=== PATIENT | female | born 1975 | race Hispanic/Latino ===

== ENCOUNTER 2017-01-25 17:16 | Observation (INO) | payer MEDICAID ==
[2017-01-25 17:17] VITALS: BMI 23.4
[2017-01-25 17:22] VITALS: RESP 18
--- NOTE | 2017-01-25 17:46 | ED PDOC ---
HPI: Psych/Substance Abuse Time Seen by Provider: 01/25/17 17:24 Chief Complaint (Nursing): Alcohol Ingestion Chief Complaint (Provider): Alcohol intoxication ED Caveat: Intoxicated History Per: Patient, EMS History/Exam Limitations: no limitations Onset/Duration Of Symptoms: Hrs Current Symptoms Are (Timing): Still Present Suicide/Self Injury Attempted (Context): None Modifying Factor(s): Alcohol Severity: Moderate Associated Symptoms: denies: Suicidal Thoughts, Suicidal Plan Additional Complaint(s): The pt is a 41yo female, brought to the ED by EMS s/p discovering the pt publicly intoxicated. Pt admits to drinking a bottle of vodka with her friends today. She denies any trauma or injuries. Pt offers no medical complaints. Past Medical History Reviewed: Historical Data, Nursing Documentation, Vital Signs Vital Signs: Last Vital Signs Temp 97.2 F L 01/25/17 17:19 Pulse 102 H 01/25/17 17:19 Resp 18 01/25/17 17:19 BP 129/97 H 01/25/17 17:19 Pulse Ox 98 01/25/17 17:19 - Medical History PMH: Depression Denies: Hepatitis, HIV, HTN, Chronic Kidney Disease, Seizures, Sexually Transmitted Disease - Family History Family History: States: Unknown Family Hx - Social History Alcohol: > 2 Drinks/Day - Immunization History Hx Tetanus Toxoid Vaccination: No Hx Influenza Vaccination: No Hx Pneumococcal Vaccination: No - Home Medications Home Medications: Ambulatory Orders Medication Instructions Recorded Escitalopram [Lexapro] 20 mg PO DAILY #30 tab 07/14/16 Gabapentin [Neurontin] 300 mg PO TID #90 cap 07/14/16 QUEtiapine [Seroquel] 300 mg PO HS #30 tab 07/14/16 - Allergies Allergies/Adverse Reactions: Allergies Allergy/AdvReac Type Severity Reaction Status Date / Time No Known Allergies Allergy Verified 01/25/17 17:19 Review of Systems ROS Statement: Except As Marked, All Systems Reviewed And Found Negative Psych: Positive for: Other (alcohol intox) Physical Exam - Reviewed Nursing Documentation Reviewed: Yes Vital Signs Reviewed: Yes - Physical Exam Appears: Positive for: Well, No Acute Distress Head Exam: Positive for: ATRAUMATIC, NORMAL INSPECTION, NORMOCEPHALIC Skin: Positive for: Normal Color Eye Exam: Positive for: Normal appearance, EOMI, PERRL Neck: Positive for: Normal Cardiovascular/Chest: Positive for: Regular Rate, Rhythm Respiratory: Positive for: Normal Breath Sounds. Negative for: Respiratory Distress Neurologic/Psych: Positive for: Alert, Oriented, Mood/Affect (slurred speech), Gait (unsteady gait) - ECG O2 Sat by Pulse Oximetry: 98 (RA) Pulse Ox Interpretation: Normal Medical Decision Making Medical Decision Making: Time: 1735 Impression: Alcohol intoxication Plan: * ED observation for clinical sobriety * Alcohol serum * Reassess Scribe Attestation: Documented by Kamila Chapman acting as a scribe for Dieudonne Darling MD. Provider Attestation: All medical record entries made by the Scribe were at my direction and personally dictated by me. I have reviewed the chart and agree that the record accurately reflects my personal performance of the history, physical exam, medical decision making, and the department course for this patient. I have also personally directed, reviewed, and agree with the discharge instructions and disposition. ED OBSERVATION Date of observation admission: 01/25/17 Time of observation admission: 17:48 - Observation admission statement Patient is being placed in observation because:: Pt acutely intoxicated - Goals of Observation Goals of observation are:: Awaiting clinical sobriety - Progress Note Progress Note: 01/25/17 17:48 Pt in room with slurred speech, unsteady gait. No other medical complaints. 01/25/17 19:09 Pt is still intoxicated, sleeping in room. vitals stable. 01/25/17 20:00 Pt to be signed over to Dr. Smith pending clinical sobriety. Disposition - Clinical Impression Clinical Impression: Alcohol abuse with intoxication - Patient ED Disposition Is Patient to be Admitted: Transfer of Care - Disposition Disposition: Transfer of Care Disposition Time: 19:00 Condition: STABLE Patient Signed Over To: Humphrey Smith Handoff Comments: pending clinical sobriety
--- NOTE | 2017-01-25 20:09 | ED PDOC ---
- ECG O2 Sat by Pulse Oximetry: 98 (RA) Pulse Ox Interpretation: Normal Medical Decision Making Medical Decision Making: Receiving Sign Out: Pt signed over to me by Dr. Darling pending clinical sobriety. 0555: Patient is awake and alert with steady gait ready to be discharged home. Scribe Attestation: Documented by Kamila Chapman acting as a scribe for Humphrey gould MD. Provider Attestation: All medical record entries made by the Scribe were at my direction and personally dictated by me. I have reviewed the chart and agree that the record accurately reflects my personal performance of the history, physical exam, medical decision making, and the department course for this patient. I have also personally directed, reviewed, and agree with the discharge instructions and disposition. Disposition - Clinical Impression Clinical Impression: Alcohol abuse with intoxication - POA Present On Arrival: None - Disposition Disposition: Routine/Home Disposition Time: 06:02 Condition: STABLE
[2017-01-26 06:04] VITALS: BP 151/92; PULSE 91; O2SAT 97
[2017-01-26 06:05] VITALS: TEMP 98.2
== END 2017-01-26 05:49 | disposition home or self-care (01) ==
LOC: H.ER 17:16 → H.EROBSV 17:43
PROVIDERS: ADMIT Emergency Medicine; ATTEND Emergency Medicine
DX: F10.129 Alcohol abuse with intoxication, unspecified (principal); F32.9 Major depressive disorder, single episode, unspecified

== ENCOUNTER 2017-02-03 23:54 | Observation (INO) | payer MEDICAID ==
[2017-02-03 23:54] VITALS: BMI 23.4
[2017-02-03 23:59] VITALS: TEMP 98; O2SAT 100
--- NOTE | 2017-02-04 00:51 | ED PDOC ---
HPI: Psych/Substance Abuse Time Seen by Provider: 02/04/17 00:05 Chief Complaint (Nursing): Psychiatric Evaluation Chief Complaint (Provider): edp History Per: EMS Additional History Per: EMS Additional Complaint(s): 41 y/o female brought in by EMS for eval of bizarre behavior. HPI limited due to patients current state; admitted to triage nurse to drinking tonight. Past Medical History Reviewed: Historical Data, Nursing Documentation, Vital Signs Vital Signs: Last Vital Signs Temp 98.0 F 02/03/17 23:55 Pulse 106 H 02/03/17 23:55 Resp 16 02/03/17 23:55 BP 141/85 02/03/17 23:55 Pulse Ox 100 02/03/17 23:55 - Medical History PMH: Depression Denies: Hepatitis, HIV, HTN, Chronic Kidney Disease, Seizures, Sexually Transmitted Disease - Surgical History Surgical History: No Surg Hx - Family History Family History: States: Unknown Family Hx - Immunization History Hx Tetanus Toxoid Vaccination: No Hx Influenza Vaccination: No Hx Pneumococcal Vaccination: No - Home Medications Home Medications: Ambulatory Orders Medication Instructions Recorded Escitalopram [Lexapro] 20 mg PO DAILY #30 tab 07/14/16 Gabapentin [Neurontin] 300 mg PO TID #90 cap 07/14/16 QUEtiapine [Seroquel] 300 mg PO HS #30 tab 07/14/16 Amoxicillin/Clavulanate [Augmentin 1 tab PO Q12 #20 tab 02/04/17 875 MG-125 MG] Erythromycin 0.5% [Erythromycin] 1 applic OS Q6 #1 tube 02/04/17 - Allergies Allergies/Adverse Reactions: Allergies Allergy/AdvReac Type Severity Reaction Status Date / Time No Known Allergies Allergy Verified 02/03/17 23:55 Review of Systems Review Of Systems: ROS cannot be obtained secondary to pt's inabilty to answer questions. Physical Exam - Reviewed Nursing Documentation Reviewed: Yes Vital Signs Reviewed: Yes - Physical Exam Appears: Positive for: Well, Non-toxic, Uncomfortable (sleeping) Skin: Positive for: Rash (left facial swelling) Eye Exam: Positive for: Periorbital swelling (left), Periorbital tenderness ( left), Conjunctival injection (left) ENT: Positive for: Normal ENT Inspection Cardiovascular/Chest: Positive for: Regular Rate, Rhythm Respiratory: Positive for: Normal Breath Sounds Gastrointestinal/Abdominal: Positive for: Normal Exam Back: Positive for: Normal Inspection Extremity: Positive for: Normal ROM Neurologic/Psych: Positive for: Alert (responds to sternal rub) - Laboratory Results Result Diagrams: 02/04/17 00:55 02/04/17 00:55 - ECG O2 Sat by Pulse Oximetry: 100 ED OBSERVATION Date of observation admission: 02/04/17 Time of observation admission: 01:00 - Observation admission statement Patient is being placed in observation because:: acute alcohol intoxication, facial trauma - Goals of Observation Goals of observation are:: obtain CT head, CT facial, observe for clinical sobriety - Progress Note Progress Note: 02/04/17 1:00 Patient sleeping; responds to sternal rub 3:00 Patient sleeping 5:00 EXAM: CT Maxillofacial Without Intravenous Contrast CLINICAL HISTORY: 41 years old, female; Injury or trauma; Fall; Initial encounter; Blunt trauma ( contusions or hematomas); Cheek bone; Left; Additional info: ETOH, fall TECHNIQUE: Axial computed tomography images of the face without intravenous contrast. This CT exam was performed using one or more of the following dose reduction techniques: automated exposure control, adjustment of the mA and/or kV according to patient size, and/or use of iterative reconstruction technique. Coronal and sagittal reformatted images were created and reviewed. EXAM DATE/TIME: 02/04/2017 12:48 AM COMPARISON: CT HEAD OR BRAIN W/O CONT 02/24/2013 11:50:40 PM FINDINGS: Bones/joints: Acute mild dehiscence of the left zygomaticotemporal suture. Acute displaced fractures of both frontal processes of the maxilla and both temporal bones. Minimally displaced fracture of the anterior, superior margin of the bony nasal septum. Minimally displaced fracture of the medial margin of the left orbital floor with focal herniation of intraorbital fat. Soft tissues: Left facial soft tissue swelling. Orbits: Unremarkable. Sinuses: Mild mucosal thickening of the maxillary sinuses. No air-fluid levels. IMPRESSION: 1. Acute mild dehiscence of the left zygomaticotemporal suture. 2. Displaced fractures of both frontal processes of the maxilla and both temporal bones, new since the available prior study. 3. Minimally displaced fracture of the anterior, superior margin of the bony nasal septum. 4. Minimally displaced fracture of the medial margin of the left orbital floor with focal herniation of intraorbital fat. EXAM: CT Head Without Intravenous Contrast CLINICAL HISTORY: 41 years old, female; Injury or trauma; Fall; Additional info: ETOH, fall TECHNIQUE: Axial computed tomography images of the head/brain without intravenous contrast. This CT exam was performed using one or more of the following dose reduction techniques: automated exposure control, adjustment of the mA and/or kV according to patient size, and/or use of iterative reconstruction technique. Coronal and sagittal reformatted images provided and reviewed. EXAM DATE/TIME: 02/04/2017 12:48 AM COMPARISON: CT HEAD OR BRAIN W/O CONT 02/24/2013 11:50:40 PM FINDINGS: Brain: No intracranial hemorrhage. No evidence of evolved territorial infarct or cerebral edema. No mass effect or midline shift. Ventricles: Unremarkable. No ventriculomegaly. Bones/joints: Facial bones are described separately. No calvarial fracture. Soft tissues: Frontal soft tissue swelling. Sinuses: Visualized paranasal sinuses are clear. Mastoid air cells: Mastoid air cells are well-aerated. IMPRESSION: No acute intracranial findings. 5:45 Case discussed with ED attending Dr. Smith, who agrees patient will need OMFS follow up. Augmentin dose given in ED. Patient will be endorsed pending clinical sobriety for better understanding of follow up instructions and to obtain visual acuity test. Disposition - Clinical Impression Clinical Impression: Facial bones, closed fracture, Alcohol abuse - Patient ED Disposition Is Patient to be Admitted: No - Disposition Disposition: Transfer of Care Disposition Time: 06:10 Condition: FAIR Patient Signed Over To: Humphrey Smith Handoff Comments: pending sobriety, visual acuity, and re-eval
[2017-02-04 01:30] LABS: BASO % 0.4 % (0.0-2.0); EOS # 0.1 K/uL (0.0-0.7); EOS % 1.8 % (0.0-4.0); HEMATOCRIT 37.6 % (34.0-47.0); LYMPH # 1.5 K/uL (1.0-4.3); LYMPH % 24.8 % (20.0-40.0); MEAN CELL VOLUME 91.6 fl (81.0-99.0); MEAN CORPUSCULAR HEMOGLOBIN 29.9 pg (27.0-31.0); MEAN CORPUSCULAR HGB CONC 32.7 g/dL (33.0-37.0); MEAN PLATELET VOLUME 7.3 fl (7.2-11.7); MONO # 0.3 K/uL (0.0-0.8); MONO % 5.6 % (0.0-10.0); NEUT # 4.1 K/uL (1.8-7.0); NEUT % 67.4 % (50.0-75.0); NRBC % 0.1 % (0.0-0.0); RED CELL DISTRIBUTION WIDTH 16.7 % (11.5-14.5); WHITE BLOOD COUNT 6.1 K/uL (4.8-10.8)
[2017-02-04 01:48] LABS: ALB/GLOB RATIO 1.1 (1.0-2.1); ALKALINE PHOSPHATASE 120 U/L (38-126); ALT/SGPT 68 U/L (9-52); AST/SGOT 78 U/L (14-36); BILIRUBIN,TOTAL 0.3 mg/dl (0.2-1.3); BLOOD UREA NITROGEN 9 mg/dl (7-17); CALCIUM 8.4 mg/dL (8.4-10.2); CARBON DIOXIDE 24 mmol/L (22-30); CHLORIDE 104 mmol/L (98-107); GFR AFRICAN-AMERICAN > 60; GLUCOSE,RANDOM 90 mg/dL (65-105); POTASSIUM 3.3 MMOL/L (3.6-5.0); SODIUM 145 mmol/l (132-148); TOTAL PROTEIN 8.3 G/DL (6.3-8.2)
[2017-02-04 02:00] LABS: ALCOHOL SERUM 386 mg/dl (0-10)
[2017-02-04] MEDS ORDERED: Amoxicillin-Clav 875-125 mg Tab PO STA (05:23)
[2017-02-04] MEDS ORDERED: Amoxicillin-Clav 875-125 mg Tab PO ONE (06:05)
[2017-02-04 06:20] VITALS: BP 132/81; PULSE 91; RESP 17
--- NOTE | 2017-02-04 10:39 | CT ---
PROCEDURE: CT HEAD WITHOUT CONTRAST. HISTORY: etoh, fall COMPARISON: Noncontrast head CT performed 02/24/13 TECHNIQUE: Axial computed tomography images were obtained through the head/brain without intravenous contrast. Radiation dose: Total exam DLP = 843.46 mGy-cm. This CT exam was performed using one or more of the following dose reduction techniques: Automated exposure control, adjustment of the mA and/or kV according to patient size, and/or use of iterative reconstruction technique. FINDINGS: HEMORRHAGE: No intracranial hemorrhage. BRAIN: No mass effect or edema. No atrophy or chronic microvascular ischemic changes.Please note that MRI with diffusion imaging is more sensitive in the detection of acute ischemic event. VENTRICLES: No hydrocephalus. CALVARIUM: Unremarkable. PARANASAL SINUSES: Unremarkable as visualized. No significant inflammatory changes. MASTOID AIR CELLS: Unremarkable as visualized. No inflammatory changes. OTHER FINDINGS: Left frontal and preseptal soft tissue swelling. IMPRESSION: Left frontal and preseptal soft tissue swelling. No acute intracranial pathology identified. Preliminary impression was provided by [facility].
--- NOTE | 2017-02-04 13:39 | CT ---
PROCEDURE: CT MAXILLOFACIAL BONES WITHOUT CONTRAST HISTORY: etoh, fall COMPARISON: None TECHNIQUE: Contiguous axial CT images of the maxillofacial bones were obtained. Coronal and sagittal reformats were generated. Radiation dose: Total exam DLP = 651.03 mGy-cm. This CT exam was performed using one or more of the following dose reduction techniques: Automated exposure control, adjustment of the mA and/or kV according to patient size, and/or use of iterative reconstruction technique. FINDINGS: NASAL BONES: Nasal bone fractures are seen. Minimally displaced fracture of the anterior superior margin of the bony nasal septum. ORBITS: Nondisplaced fracture at the medial margin of the left orbital floor with focal small herniation of the intraorbital fat into the left maxillary sinus. PARANASAL SINUSES/ MASTOIDS: Mild mucosal thickening seen in the ethmoid and maxillary sinus. MAXILLA: Displaced fractures of the both frontal process of the maxilla and both temporal bones. MANDIBLE/ TEMPOROMANDIBULAR JOINTS: Unremarkable. SKULL BASE: Unremarkable. TEMPORAL BONES: There is acute mild dehiscences of the left zygomaticotemporal suture OTHER FINDINGS: None. IMPRESSION: Nasal bone and nasal septal fractures. Mildly displaced fracture at both frontal process of the maxilla. Acute mildly since of the left zygomatic temporal suture. Nondisplaced fracture at the medial margin of the left orbital floor with focal herniation of the intraorbital fat. Preliminary report was submitted by [facility]
== END 2017-02-04 06:58 | disposition home or self-care (01) ==
LOC: H.ER 23:54 → H.EROBSV 02-04 01:00
PROVIDERS: ADMIT Emergency Medicine; ATTEND Emergency Medicine
DX: F10.10 Alcohol abuse, uncomplicated (principal); F32.9 Major depressive disorder, single episode, unspecified; S02.32XA Fracture of orbital floor, left side, initial encounter for closed fracture; T81.33XA Disruption of traumatic injury wound repair, initial encounter; X58.XXXA Exposure to other specified factors, initial encounter; Y93.9 Activity, unspecified; Y92.9 Unspecified place or not applicable; Y99.9 Unspecified external cause status

== ENCOUNTER 2017-02-05 08:48 | Inpatient (IN) | payer MEDICAID ==
[2017-02-05] MEDS ORDERED: Sodium Chloride 0.9% 1,000 ML IV STA (09:00)
--- NOTE | 2017-02-05 09:17 | ED PDOC ---
HPI: Psych/Substance Abuse Time Seen by Provider: 02/05/17 08:52 Chief Complaint (Nursing): Alcohol Ingestion Chief Complaint (Provider): Alcohol Ingestion ED Caveat: Intoxicated, Uncooperative History/Exam Limitations: intoxication Current Symptoms Are (Timing): Still Present Additional Complaint(s): Yarelis Nava is a 41 year old female with a history of ETOH abuse, who presents to the Emergency Department via EMS when she was found publicly intoxicated on the street. Seen prior on 02/04/17 for alcohol intoxication and had CT Orbits performed which shown multiple fractures and herniation of the extra ocular fat. Patient is unable to provide medical history and deplorable to state any changes in visual acuity. Denies any new injury or trauma. PMD: None provided Past Medical History Reviewed: Historical Data, Nursing Documentation, Vital Signs Vital Signs: Last Vital Signs Temp 98 F 02/05/17 08:59 Pulse 89 02/05/17 08:59 Resp 16 02/05/17 08:59 BP 130/97 H 02/05/17 08:59 Pulse Ox 99 02/05/17 08:59 - Medical History PMH: Depression Denies: Hepatitis, HIV, HTN, Chronic Kidney Disease, Seizures, Sexually Transmitted Disease Other PMH: ETOH Abuse - Family History Family History: States: Unknown Family Hx - Immunization History Hx Tetanus Toxoid Vaccination: No Hx Influenza Vaccination: No Hx Pneumococcal Vaccination: No - Home Medications Home Medications: Ambulatory Orders Medication Instructions Recorded Escitalopram [Lexapro] 20 mg PO DAILY #30 tab 07/14/16 Gabapentin [Neurontin] 300 mg PO TID #90 cap 07/14/16 QUEtiapine [Seroquel] 300 mg PO HS #30 tab 07/14/16 Amoxicillin/Clavulanate [Augmentin 1 tab PO Q12 #20 tab 02/04/17 875 MG-125 MG] Erythromycin 0.5% [Erythromycin] 1 applic OS Q6 #1 tube 02/04/17 - Allergies Allergies/Adverse Reactions: Allergies Allergy/AdvReac Type Severity Reaction Status Date / Time No Known Allergies Allergy Verified 02/03/17 23:55 Review of Systems Review Of Systems: ROS cannot be obtained secondary to pt's inabilty to answer questions. Physical Exam - Reviewed Nursing Documentation Reviewed: Yes Vital Signs Reviewed: Yes - Physical Exam Appears: Positive for: Well, Non-toxic, No Acute Distress (ETOH intoxication ) Eye Exam: Positive for: EOMI (appears to be intact but the patient is noncompliant with exam ), Periorbital swelling (left eye). Negative for: Normal appearance Neck: Positive for: Normal, Supple Cardiovascular/Chest: Positive for: Regular Rate, Rhythm. Negative for: Murmur Respiratory: Positive for: Normal Breath Sounds. Negative for: Respiratory Distress Neurologic/Psych: Positive for: Alert (sleepy but arousable ), Other (Slurred speech). Negative for: Motor/Sensory Deficits (no focal deficits) - ECG O2 Sat by Pulse Oximetry: 99 (RA) Pulse Ox Interpretation: Normal Medical Decision Making Medical Decision Making: Time: 8:59 Initial Impression: ETOH Intoxication Initial Plan: * CT Maxillofacial w/o contrast * ETOH serum * Normal Saline 1,000 ml IV per 100 mls/hr * ED obs * reevaluation 02/04/17 CT Head FINDINGS: HEMORRHAGE: No intracranial hemorrhage. BRAIN: No mass effect or edema. No atrophy or chronic microvascular ischemic changes.Please note that MRI with diffusion imaging is more sensitive in the detection of acute ischemic event. VENTRICLES: No hydrocephalus. CALVARIUM: Unremarkable. PARANASAL SINUSES: Unremarkable as visualized. No significant inflammatory changes. MASTOID AIR CELLS: Unremarkable as visualized. No inflammatory changes. OTHER FINDINGS: Left frontal and preseptal soft tissue swelling. IMPRESSION: Left frontal and preseptal soft tissue swelling. No acute intracranial pathology identified. Preliminary impression was provided by [facility]. Scribe Attestation: Documented by~Beverly Patel, acting as a scribe for Rasta White MD. Provider Scribe Attestation: All medical record entries made by the Scribe were at my direction and personally dictated by me. I have reviewed the chart and agree that the record accurately reflects my personal performance of the history, physical exam, medical decision making, and the department course for this patient. I have also personally directed, reviewed, and agree with the discharge instructions and disposition. ED OBSERVATION Date of observation admission: 02/05/17 Time of observation admission: 09:10 - Observation admission statement Patient is being placed in observation because:: alcohol intoxication - Goals of Observation Goals of observation are:: clinical sobriety - Progress Note Progress Note: 02/05/17 14:19 Upon reevaluation patient is becoming combative and more responsive but is not fully awake and alert. Disposition - Clinical Impression Clinical Impression: Alcohol abuse, Orbital fracture - Patient ED Disposition Is Patient to be Admitted: Transfer of Care - Disposition Disposition: Transfer of Care Disposition Time: 15:00 Condition: FAIR Patient Signed Over To: Trey Goodwin Handoff Comments: 15:00. Patient is being signed out to Lida Goodwin MD pending clinical sobriety and crisis evaluation
--- NOTE | 2017-02-05 15:25 | ED PDOC ---
- Laboratory Results Result Diagrams: 02/05/17 23:43 02/05/17 23:43 - ECG O2 Sat by Pulse Oximetry: 99 (RA) Pulse Ox Interpretation: Normal - Progress Re-evaluation Time: 21:35 (pending clinical sobriety) Condition: Unchanged Medical Decision Making Medical Decision Makin:00 Patient was signed off to me by Rasta White MD. Pending clinical sobriety and re-evaluation for eye exam. 21:35 Pending clinical sobriety. 22:15 pt sober. awake and alert. requesting to see formula room worker for depression. pt eye exam repeated. LAURIE ADAMS noted. formula room worker evaluated pt, will admit to Dr Rios for depression once labs are back and pt medically cleared. EKG: NSR at 80 bpm 2355: Patient is medically cleared for psychiatric admission. pt expressed suicidality and was seen by formula room worker and pt agrees to sign in voluntarily Scribe Attestation: Documented by~Beverly Patel, acting as a scribe for Trey Goodwin MD. Provider Scribe Attestation: All medical record entries made by the Scribe were at my direction and personally dictated by me. I have reviewed the chart and agree that the record accurately reflects my personal performance of the history, physical exam, medical decision making, and the department course for this patient. I have also personally directed, reviewed, and agree with the discharge instructions and disposition. Disposition Counseled Patient/Family Regarding: Studies Performed, Diagnosis - Clinical Impression Clinical Impression: Alcohol abuse, Orbital fracture, Depression - POA Present On Arrival: None - Disposition Disposition: Admitted as In-Patient Disposition Time: 23:35 Condition: FAIR
[2017-02-05 21:50] VITALS: O2SAT 99
[2017-02-05 23:47] LABS: BASO % 0.7 % (0.0-2.0); EOS # 0.2 K/uL (0.0-0.7); EOS % 2.9 % (0.0-4.0); HEMATOCRIT 37.8 % (34.0-47.0); LYMPH # 1.3 K/uL (1.0-4.3); MEAN CELL VOLUME 91.5 fl (81.0-99.0); MEAN CORPUSCULAR HEMOGLOBIN 30.1 pg (27.0-31.0); MEAN CORPUSCULAR HGB CONC 32.9 g/dL (33.0-37.0); MEAN PLATELET VOLUME 7.3 fl (7.2-11.7); MONO # 0.5 K/uL (0.0-0.8); MONO % 8.9 % (0.0-10.0); NEUT # 3.3 K/uL (1.8-7.0); NEUT % 62.5 % (50.0-75.0); RED CELL DISTRIBUTION WIDTH 16.5 % (11.5-14.5); WHITE BLOOD COUNT 5.2 K/uL (4.8-10.8)
[2017-02-05 23:55] LABS: ALB/GLOB RATIO 1.1 (1.0-2.1); ALCOHOL SERUM < 10 mg/dl (0-10); ALKALINE PHOSPHATASE 109 U/L (38-126); ALT/SGPT 87 U/L (9-52); AST/SGOT 95 U/L (14-36); BILIRUBIN,TOTAL 0.6 mg/dl (0.2-1.3); BLOOD UREA NITROGEN 13 mg/dl (7-17); CALCIUM 9.3 mg/dL (8.4-10.2); CARBON DIOXIDE 30 mmol/L (22-30); CHLORIDE 95 mmol/L (98-107); GFR AFRICAN-AMERICAN > 60; GLUCOSE,RANDOM 96 mg/dL (65-105); POTASSIUM 4.3 MMOL/L (3.6-5.0); SODIUM 132 mmol/l (132-148); TOTAL PROTEIN 8.4 G/DL (6.3-8.2)
[2017-02-06] MEDS ORDERED: Magnesium Hydroxide Susp 30 ml UD PO PRN (01:49)
[2017-02-06] MEDS ORDERED: DiphenhydrAMINE 50 mg/ml Inj IM PRN (01:49)
[2017-02-06 02:06] LABS: RBC URINE 2 /hpf (0-3); URINE BACTERIA RARE (<OCC); URINE BILIRUBIN NEGATIVE (NEGATIVE); URINE BLOOD NEGATIVE (NEGATIVE); URINE COLOR YELLOW (YELLOW); URINE GLUCOSE (UA) NEG (Normal); URINE KETONE NEGATIVE (NEGATIVE); URINE LEUKOCYTE ESTERASE NEG Leu/uL (Negative); URINE PROTEIN 100 mg/dL (NEGATIVE); URINE UROBILINOGEN 0.2-1.0 mg/dL (0.2-1.0); WBC URINE 1 /hpf (0-5)
[2017-02-06 07:59] LABS: T4 5.65 ug/dl (5.5-11.0)
[2017-02-06 08:13] LABS: THYROID STIMULATING HORMONE 3.2 mIU/ML (0.46-4.68)
--- NOTE | 2017-02-06 09:25 | RAD ---
HISTORY: psych COMPARISON: Comparison is made to the previous study dated 05/17/2016 FINDINGS: LUNGS: No active pulmonary disease. PLEURA: No significant pleural effusion identified, no pneumothorax apparent. CARDIOVASCULAR: Normal. OSSEOUS STRUCTURES: No significant abnormalities. VISUALIZED UPPER ABDOMEN: Normal. OTHER FINDINGS: None. IMPRESSION: No active disease.
[2017-02-06] MEDS: Multivitamin With Minerals Tab PO SCH (09:32)
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
--- NOTE | 2017-02-06 12:16 | CARD ---
APPROVED REPORT EKG Measurement Heart [id number] <Conclusion> Normal sinus rhythm Normal ECG
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
[2017-02-06] MEDS: Silver Sulfadiazine 1% Cream (20 gm) TOP SCH (18:18)
[2017-02-07] MEDS: Multivitamin With Minerals Tab PO SCH (10:02)
[2017-02-07] MEDS: Silver Sulfadiazine 1% Cream (20 gm) TOP SCH (16:56)
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
[2017-02-08] MEDS: Multivitamin With Minerals Tab PO SCH (09:02)
[2017-02-08] MEDS: Hydrophor Oint TOP SCH (13:30)
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
[2017-02-09] MEDS: Silver Sulfadiazine 1% Cream (20 gm) TOP SCH ×2 (09:36→16:17)
[2017-02-09] MEDS: Hydrophor Oint TOP SCH ×3 (09:36→16:16)
[2017-02-09] MEDS: Multivitamin With Minerals Tab PO SCH (09:37)
--- NOTE | 2017-02-09 14:14 | PCM.PYCHPN ---
Psychiatric Progress Note - Psychiatric Progress Note Patient seen today, length of contact: discussed with team Patient Chief Complaint: i feel a little better Problems Identified/Issues Discussed: pt anxious. c/o feeling tired. less irritable today than over the weekend. she is expressing some interest in an inpt rehab program. Medication Change: Yes ( ) Medical Record Reviewed: Yes Mental Status Examination - Cognitive Function Orientation: Person, Place, Situation, Time Attention: WNL Concentration: WNL Association: WNL Fund of Knowledge: WNL - Mood Mood: Anxious - Affect Affect: Constricted - Speech Speech: Appropriate - Formal Thought Process Formal Thought Process: No Impairment - Suicidal Ideation Suicidal Ideation: No - Homicidal Ideation Homicidal Ideation: No Goal/Treatment Plan - Goal/Treatment Plan Need for Continued Stay: Remain at risks for inpatient hospitalization, Discharge may exacerbated symptoms Progress Toward Problem(s) and Goals/Treatment Plan: alcohol dependence depression unspecified continue to taper ativan vistaril standing for anxiety refer to inpt reha Estimated Date of D/C: 02/11/17
[2017-02-10] MEDS: Silver Sulfadiazine 1% Cream (20 gm) TOP SCH ×2 (06:12→16:48)
[2017-02-10] MEDS: Multivitamin With Minerals Tab PO SCH (09:37)
--- NOTE | 2017-02-10 11:03 | PCM.PYCHPN ---
Psychiatric Progress Note - Psychiatric Progress Note Patient seen today, length of contact: discussed with team Patient Chief Complaint: i am anxious Problems Identified/Issues Discussed: pt reports poor sleep. she is not c/o any withdrawal symptoms. reports she is anxious. pt has periods of irritability. Medication Change: Yes (dc trazdone, start doxepin) Medical Record Reviewed: Yes Mental Status Examination - Cognitive Function Orientation: Person, Place, Situation, Time Attention: WNL Concentration: WNL Association: WNL Fund of Knowledge: WNL Decription of patient's judgement and insights: improving, fair - Mood Mood: Anxious - Affect Affect: Constricted - Speech Speech: Appropriate - Formal Thought Process Formal Thought Process: No Impairment - Suicidal Ideation Suicidal Ideation: No - Homicidal Ideation Homicidal Ideation: No Goal/Treatment Plan - Goal/Treatment Plan Need for Continued Stay: Remain at risks for inpatient hospitalization, Discharge may exacerbated symptoms Progress Toward Problem(s) and Goals/Treatment Plan: alcohol dependence depression unspecified lower ativan tomorrow vistaril changed back to prn for anxiety doxepin at for insomnia. abel trazodone. refer to in rehab facility Estimated Date of D/C: 02/13/17
[2017-02-10] MEDS: Hydrophor Oint TOP SCH ×2 (12:58→16:49)
[2017-02-11] MEDS: Multivitamin With Minerals Tab PO SCH (08:53)
[2017-02-11] MEDS: Hydrophor Oint TOP SCH ×2 (08:54→12:39)
--- NOTE | 2017-02-11 13:44 | PCM.PYCHPN ---
Psychiatric Progress Note - Psychiatric Progress Note Patient seen today, length of contact: in treatment team Patient Chief Complaint: i am angry at you Problems Identified/Issues Discussed: pt reports it took her 1 1/2 hrs to sleep. reports she needs something strong for anxiety. pt demanding high dosages of medications for anxiety and gets upset when told it is not appropriate. she expresses anger towards her step mother, biological mother, treatment team. pt demands to be back on trazodone. she allows for using seroquel during the day. pt states she is not sure if she wants to go directly to a rehab, but needs to take care of things in the community first. no withdrawal symptoms Medication Change: Yes (restart trazodone, inc. seroquel) Medical Record Reviewed: Yes Mental Status Examination - Cognitive Function Orientation: Person, Place, Situation, Time Attention: WNL Concentration: WNL Association: WNL Fund of Knowledge: [facility] Decription of patient's judgement and insights: improving, fair - Mood Mood: Depressed, Anxious, Other (angry) - Affect Affect: Other Additional comments: irritated/angry - Speech Speech: Loud - Formal Thought Process Formal Thought Process: No Impairment Psychotic Thoughts and Behaviors: denies a/v hallucinations - Suicidal Ideation Suicidal Ideation: No - Homicidal Ideation Homicidal Ideation: No Goal/Treatment Plan - Goal/Treatment Plan Need for Continued Stay: Remain at risks for inpatient hospitalization, Discharge may exacerbated symptoms Progress Toward Problem(s) and Goals/Treatment Plan: alcohol dependence depression unspecified dc standing ativan tomorrow continue prn vistaril seroquel 50mg am and 200mg hs for mood/anxiety trazodone 150hs for insomnia refer to in rehab facility Estimated Date of D/C: 02/13/17
[2017-02-12] MEDS: Multivitamin With Minerals Tab PO SCH (08:50)
[2017-02-12] MEDS: Silver Sulfadiazine 1% Cream (20 gm) TOP SCH ×2 (08:50→17:02)
[2017-02-12] MEDS: Hydrophor Oint TOP SCH ×3 (08:51→17:02)
--- NOTE | 2017-02-12 11:07 | PCM.PYCHPN ---
Psychiatric Progress Note - Psychiatric Progress Note Patient seen today, length of contact: discussed with team Patient Chief Complaint: i slept better Problems Identified/Issues Discussed: pt now wants to go to inpt rehab. she slept through the night per her report. she is less irritable. she is participating in groups. states she is less anxious today. Medication Change: No ( ) Medical Record Reviewed: Yes Mental Status Examination - Cognitive Function Orientation: Person, Place, Situation, Time Attention: WNL Concentration: WNL Association: WNL Fund of Knowledge: WN Decription of patient's judgement and insights: improving, fair - Mood Mood: Anxious - Affect Affect: Broad - Speech Speech: Appropriate - Formal Thought Process Formal Thought Process: No Impairment Psychotic Thoughts and Behaviors: denies a/v hallucinations - Suicidal Ideation Suicidal Ideation: No - Homicidal Ideation Homicidal Ideation: No Goal/Treatment Plan - Goal/Treatment Plan Need for Continued Stay: Remain at risks for inpatient hospitalization, Discharge may exacerbated symptoms Progress Toward Problem(s) and Goals/Treatment Plan: alcohol dependence depression unspecified encourage participation in groups continue prn vistaril continue seroquel 50mg am and 200mg hs for mood/anxiety trazodone 150hs for insomnia refer to inpt rehab facility Estimated Date of D/C: 02/13/17
[2017-02-12] MEDS: Alum-Mag Hydrox-Simethicone Susp (30 mL) PO PRN (18:30)
[2017-02-13] MEDS: Multivitamin With Minerals Tab PO SCH (09:03)
[2017-02-13] MEDS: Hydrophor Oint TOP SCH ×3 (09:06→16:54)
[2017-02-13] MEDS: Alum-Mag Hydrox-Simethicone Susp (30 mL) PO PRN (10:00)
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
[2017-02-14] MEDS: Multivitamin With Minerals Tab PO SCH (09:04)
[2017-02-14] MEDS: Hydrophor Oint TOP SCH ×2 (09:06→12:49)
--- NOTE | 2017-02-14 10:53 | PCM.PYCHPN ---
Psychiatric Progress Note - Psychiatric Progress Note Patient seen today, length of contact: Patient evaluated, case discussed with team, chart reviewed Patient Chief Complaint: "I'm being treated like a prisoner" Problems Identified/Issues Discussed: Patient was labile and irritable towards quality analyst/technical writer. She reports that she feels depressed. She started yelling at the quality analyst/technical writer and stormed out of the room when told the quality analyst/technical writer would not be increasing her Gabapentin at this time. She had various dramatic complaints including that she is being treated like a prisoner. Patient is aware she can sign a 48 hour notice requesting discharge if she would like. No symptoms of ETOH noted. Medication Change: No ( ) Medical Record Reviewed: Yes Mental Status Examination - Cognitive Function Orientation: Person, Place, Situation, Time Attention: WNL Concentration: WNL Association: WNL Fund of Knowledge: WNL - Mood Mood: Depressed - Affect Affect: Other (Labile) - Speech Speech: Appropriate - Formal Thought Process Formal Thought Process: No Impairment Psychotic Thoughts and Behaviors: No AH/VH/paranoia - Suicidal Ideation Suicidal Ideation: No - Homicidal Ideation Homicidal Ideation: No Goal/Treatment Plan - Goal/Treatment Plan Need for Continued Stay: Remain at risks for inpatient hospitalization, Discharge may exacerbated symptoms Progress Toward Problem(s) and Goals/Treatment Plan: Diagnosis: alcohol dependence, depression unspecified. Patient needs continued hospitalization for treatment of depression, anxiety and mood lability. Encourage participation in groups Continue prn vistaril Continue seroquel 50mg am/ 50 mg @1pm and 200mg hs for mood/anxiety Pt referred to in rehab facility Estimated Date of D/C: 02/16/17
[2017-02-14] MEDS: Alum-Mag Hydrox-Simethicone Susp (30 mL) PO PRN ×2 (12:40→17:51)
[2017-02-14] MEDS ORDERED: POLYETHYLENE GLYCOL 3350 17 GM/Dose PACKET PO STA (20:45)
[2017-02-15] MEDS: Multivitamin With Minerals Tab PO SCH (08:37)
[2017-02-15] MEDS: Hydrophor Oint TOP SCH ×3 (08:38→17:43)
--- NOTE | 2017-02-15 11:39 | PCM.PYCHPN ---
Psychiatric Progress Note - Psychiatric Progress Note Patient seen today, length of contact: Patient evaluated, case discussed with team, chart reviewed Patient Chief Complaint: "I'm feeling depressed." Problems Identified/Issues Discussed: Patient was irritable and agitated this morning, was given PRN Haldol 5 mg PO and Vistaril 50 mg PO once. Patient is currently calm and cooperative. She is more agreeable to speaking with the scenario writer than yesterday. She reports that she feels depressed. We discussed increasing the Seroquel to 50 AM/ 100 mg @ 1300 and 200 mg HS. Patient agreeable. No current adverse effects noted. NO SI/HI. Medication Change: Yes (Increase Seroquel) Medical Record Reviewed: Yes Mental Status Examination - Cognitive Function Orientation: Person, Place, Situation, Time Memory: Intact Attention: WNL Concentration: WNL Association: WNL Fund of Knowledge: WN Decription of patient's judgement and insights: Poor I/J - Mood Mood: Depressed - Affect Affect: Other (Labile) - Speech Speech: Appropriate - Formal Thought Process Formal Thought Process: No Impairment Psychotic Thoughts and Behaviors: No AH/VH/paranoia - Suicidal Ideation Suicidal Ideation: No - Homicidal Ideation Homicidal Ideation: No Goal/Treatment Plan - Goal/Treatment Plan Need for Continued Stay: Remain at risks for inpatient hospitalization, Discharge may exacerbated symptoms Progress Toward Problem(s) and Goals/Treatment Plan: Diagnosis: alcohol dependence, depression unspecified. Patient needs continued hospitalization for treatment of depression, anxiety and mood lability. Encourage participation in groups Continue prn vistaril Increase Seroquel to 50mg am/ 100 mg @1pm and 200mg hs for mood/anxiety Pt referred to in rehab facility Estimated Date of D/C: 02/17/17
[2017-02-15] MEDS: Alum-Mag Hydrox-Simethicone Susp (30 mL) PO PRN (17:42)
[2017-02-15 18:01] VITALS: RESP 18
[2017-02-16] MEDS: Hydrophor Oint TOP SCH (08:45)
[2017-02-16] MEDS: Multivitamin With Minerals Tab PO SCH (08:46)
[2017-02-16 09:28] VITALS: BP 115/70; PULSE 88; TEMP 97.5
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
== END 2017-02-16 12:24 | disposition home or self-care (01) | DRG 430 ==
LOC: H.ER 08:48 → H.EROBSV 09:10 → H.ERHOLD 23:51 → OBSVTOIN 23:51 → H.PSYCH 02-06 01:47
PROVIDERS: ADMIT Psychiatry & Neurology Psychiatry; ATTEND Psychiatry & Neurology Psychiatry
PROC: GZ51ZZZ Individual Psychotherapy, Behavioral (ICD-10-PCS; 2017-02-05)
PROC: GZHZZZZ Group Psychotherapy (ICD-10-PCS; principal; 2017-02-09)
DX: F31.81 Bipolar II disorder (principal); T81.30XA Disruption of wound, unspecified, initial encounter; S02.32XA Fracture of orbital floor, left side, initial encounter for closed fracture; S02.2XXA Fracture of nasal bones, initial encounter for closed fracture; F10.229 Alcohol dependence with intoxication, unspecified; F41.8 Other specified anxiety disorders; G47.00 Insomnia, unspecified; X58.XXXA Exposure to other specified factors, initial encounter; Y93.9 Activity, unspecified; Y92.9 Unspecified place or not applicable; Y99.9 Unspecified external cause status; Z59.0 Homelessness; Z72.0 Tobacco use; Y90.8 Blood alcohol level of 240 mg/100 ml or more

== ENCOUNTER 2017-11-12 01:14 | Emergency (ER) | payer MEDICAID ==
[2017-11-12 01:19] VITALS: BMI 25.8
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
[2017-11-12 02:58] LABS: BARBITURATES, UR NEGATIVE (NEGATIVE); BENZODIAZEPINES, UR NEGATIVE (NEGATIVE); OPIATES, UR NEGATIVE (NEGATIVE); PHENCYCLIDINE, UR NEGATIVE (NEGATIVE)
[2017-11-12 07:52] VITALS: RESP 19
--- NOTE | 2017-11-12 08:07 | ED PDOC ---
- ECG O2 Sat by Pulse Oximetry: 98 - Progress Re-evaluation Time: 08:06 Condition: Improved (Awake alert oriented x 3 No focal neuro deficits) Disposition - Clinical Impression Clinical Impression: Alcohol intoxication - POA Present On Arrival: None - Disposition Referrals: [facility] [Outside] Disposition: Routine/Home Disposition Time: 08:07 Condition: FAIR Instructions: Alcohol Abuse and Alcoholism (DC) Forms: [employer] (Lithuanian)
[2017-11-12 09:25] VITALS: BP 128/78; PULSE 80; TEMP 97
[2017-11-13 06:59] VITALS: O2SAT 96
== END 2017-11-12 09:34 | disposition home or self-care (01) ==
LOC: H.ER 01:14
DX: F10.129 Alcohol abuse with intoxication, unspecified (principal); F31.9 Bipolar disorder, unspecified; F41.9 Anxiety disorder, unspecified
CPT/HCPCS: 80320; 80324; 80345; 80346; 80349; 80353; 80358; 80361; 81025; 82948; 83992; 96372; 99285; J1630; J2060